=== PATIENT | female | born 1995 | race African-American/Black ===

== ENCOUNTER 2017-07-21 18:21 | Emergency (ER) | payer BC ==
[~2017-07-21] VITALS: Ht 167.6 cm; Wt 69.0 kg
[2017-07-21 18:38] VITALS: O2SAT 99; Ht 167.6 cm; Wt 69.0 kg
[2017-07-21] MEDS ORDERED: ONDANSETRON INJ 2 MG/ML 2 ML VIAL IV STA (18:44)
[2017-07-21] MEDS ORDERED: SODIUM CHLORIDE 0.9% 500ML 500 ML IV STA (18:45)
--- NOTE | 2017-07-21 19:02 | DIAGNOSTIC IMAGING REPORT ---
SINGLE VIEW CHEST CLINICAL HISTORY: Sepsis. Nausea and vomiting. FINDINGS: An AP, portable, upright chest radiograph is obtained. No prior studies are available for comparison at the time of dictation. The cardiomediastinal silhouette is unremarkable. The lungs and pleural spaces are clear. No pneumothorax is seen. The bony thorax is grossly intact. A left nipple piercing is noted. IMPRESSION: No active disease in the chest. Electronically signed by: Woo Gray M.D. 07/21/2017 7:01 PM Dictated Date/Time: 07/21/2017 7:00 PM
[2017-07-21] MEDS ORDERED: ACETAMINOPHEN 500 MG TAB PO STA (19:09)
[2017-07-21 19:28] LABS: BASO % 0.1 %; BASO ABS # 0.01 K/uL (0-0.2); COMPLETE YES; EOS % 0.1 %; IG% 0.3 %; LYMPH % 5.2 %; MEAN CELL VOLUME 90.1 fL (80-100); MEAN CORPUSCULAR HEMOGLOBIN 30.5 pg (25-34); MEAN CORPUSCULAR HGB CONC 33.8 g/dl (32-36); MEAN PLATELET VOLUME 10.4 fL (7.4-10.4); MONO % 9.3 %; PLATELET COUNT 335 K/uL (130-400); RED BLOOD COUNT 4.66 M/uL (4.2-5.4); WHITE BLOOD COUNT 11.56 K/uL (4.8-10.8)
[2017-07-21 19:37] LABS: CALCIUM 9.1 mg/dl (8.5-10.1); CREATININE 0.94 mg/dl (0.60-1.20); POTASSIUM 4.2 mmol/L (3.5-5.1)
[2017-07-21 19:40] LABS: ALB/GLOB RATIO 0.8 (0.9-2)
[2017-07-21 19:49] LABS: PROTHROMBIN TIME (PATIENT) 11.1 SECONDS (9.0-12.0)
[2017-07-21] MEDS ORDERED: KETOROLAC TROMETHAMINE 30 MG/ML VIAL IV STA (19:52)
--- NOTE | 2017-07-21 19:52 | EMERGENCY ROOM VISIT NOTE ---
History Report prepared by Uma: Viridiana Blackburn Under the Supervision of: Dr. Ashely Torres D.O. First contact with patient: 18:32 Chief Complaint: NAUSEA Stated Complaint: THROWING UP BILE, BACK PAIN, NAUSEA, HEADACHE Nursing Triage Summary: Vomiting bile and back pain since this AM. Went to [facility] ER last night to eat, also left tampon in for 24 hours. Abd cramping and diarrhea. History of Present Illness The patient is a 22 year old female who presents to the Emergency Room with complaints of persistent influenza like symptoms that began today. She rates her discomfort a 7/10 in severity. The patient states that this morning she went to work at 1000, noting she was sent home after 2 hours for having diarrhea and vomiting bile. The patient notes that she was unable to drink water without throwing up. She states that around 1300, she had a subjective fever. The patient denies a cough or sore throat. She notes that she has a lot of mucous draining from her nose and throat. The patient states that she had TGIF's the past 2 nights nights in a row, noting she ate a "questionable" chicken sandwich and a hamburger. She states that her last normal menstrual period began 6 days ago. She notes that has been experiencing cramps and back pain, noting it has not been abnormal. The patient states that last night she put in a tampon and left it in over night. The patient denies any abnormal vaginal discharge, urinary symptoms, or abdominal pain. She denies having any health problems or recently being near anyone sick. The patient notes that she is a student. She states that she had surgery on her foot during her freshman year of college. Source of History: patient Onset: Today Position: other (global) Symptom Intensity: 710 Quality: other (influenza like symptoms) Timing: other (persistent) Associated Symptoms: + fevers (subjective), + vomiting, + diarrhea, No sorethroat, No cough, No urinary symptoms Review of Systems See HPI for pertinent positives & negatives. A total of 10 systems reviewed and were otherwise negative. Past Medical & Surgical None Family History Cancer Diabetes mellitus FHx: seizures Hypertension Social History Smoking Status: Never Smoker Smokeless Tobacco Use: No Alcohol Use: occasionally Drug Use: none Housing Status: lives with roommate Occupation Status: employed Current/Historical Medications No Active Prescriptions or Reported Meds Allergies Coded Allergies: Penicillins (Verified Allergy, Unknown, Unknown, 07/21/17) As a child had a reaction Physical Exam Vital Signs Date Time Temp Pulse Resp B/P (MAP) Pulse Ox O2 Delivery O2 Flow Rate FiO2 07/21/17 22:15 36.9 96 18 126/80 98 07/21/17 21:11 110 18 118/76 98 Room Air 07/21/17 20:21 119 21 99 07/21/17 20:14 38.3 101 16 125/83 98 Room Air 07/21/17 19:51 123 20 98 07/21/17 19:21 116 15 100 07/21/17 19:21 115 07/21/17 18:38 99 Room Air 07/21/17 18:29 39.1 142 18 104/67 99 Room Air Physical Exam HEENT: Head - normocephalic and atraumatic Pupils are equal, round, and reactive to light. Extraocular eye muscles are intact, and sclera are anicteric. Nose - moist nasal mucosa without discharge. Mouth - moist buccal mucosa. Oropharynx is nonerythematous and there is no tonsillar exudate or edema noted. Neck: Supple; no JVD, nuchal rigidity, cervical lymphadenopathy. Heart: Tachycardia. There is a normal S1 and S2 with no murmurs, clicks, or gallops appreciated. Lungs: Clear to auscultation bilaterally with no wheezes, rales, or rhonchi. Abdomen: Soft, completely nontender, nondistended, with good bowel sounds. There are no palpable pulsatile masses or hepatosplenomegaly. There is no guarding, rigidity, or rebound noted. Extremities: No evidence of cyanosis, clubbing, or edema. There are easily palpable peripheral pulses. Skin: warm and dry with good turgor and no rashes. Medical Decision & Procedures ER Provider Diagnostic Interpretation: Radiology results as stated below per my review and the radiologist's interpretation: SINGLE VIEW CHEST CLINICAL HISTORY: Sepsis. Nausea and vomiting. FINDINGS: An AP, portable, upright chest radiograph is obtained. No prior studies are available for comparison at the time of dictation. The cardiomediastinal silhouette is unremarkable. The lungs and pleural spaces are clear. No pneumothorax is seen. The bony thorax is grossly intact. A left nipple piercing is noted. IMPRESSION: No active disease in the chest. Electronically signed by: Woo Gray M.D. 07/21/2017 7:01 PM Laboratory Results 07/21/17 19:00 Red Blood Count 4.66, Mean Corpuscular Volume 90.1, Mean Corpuscular Hemoglobin 30.5, Mean Corpuscular Hemoglobin Concent 33.8, Mean Platelet Volume 10.4, Neutrophils (%) (Auto) 85.0, Lymphocytes (%) (Auto) 5.2, Monocytes (%) (Auto) 9.3, Eosinophils (%) (Auto) 0.1, Basophils (%) (Auto) 0.1, Neutrophils # (Auto) 9.82, Lymphocytes # (Auto) 0.60, Monocytes # (Auto) 1.08, Eosinophils # (Auto) 0.01, Basophils # (Auto) 0.01 07/21/17 19:00 Test 07/21/17 19:00 07/21/17 19:10 07/21/17 20:08 White Blood Count 11.56 K/uL (4.8-10.8) Red Blood Count 4.66 M/uL (4.2-5.4) Hemoglobin 14.2 g/dL (12.0-16.0) Hematocrit 42.0 % (37-47) Mean Corpuscular Volume 90.1 fL (80-100) Mean Corpuscular Hemoglobin 30.5 pg (25-34) Mean Corpuscular Hemoglobin Concent 33.8 g/dl (32-36) Platelet Count 335 K/uL (130-400) Mean Platelet Volume 10.4 fL (7.4-10.4) Neutrophils (%) (Auto) 85.0 % Lymphocytes (%) (Auto) 5.2 % Monocytes (%) (Auto) 9.3 % Eosinophils (%) (Auto) 0.1 % Basophils (%) (Auto) 0.1 % Neutrophils # (Auto) 9.82 K/uL (1.4-6.5) Lymphocytes # (Auto) 0.60 K/uL (1.2-3.4) Monocytes # (Auto) 1.08 K/uL (0.11-0.59) Eosinophils # (Auto) 0.01 K/uL (0-0.5) Basophils # (Auto) 0.01 K/uL (0-0.2) RDW Standard Deviation 41.2 fL (36.4-46.3) RDW Coefficient of Variation 12.7 % (11.5-14.5) Immature Granulocyte % (Auto) 0.3 % Immature Granulocyte # (Auto) 0.04 K/uL (0.00-0.02) Prothrombin Time 11.1 SECONDS (9.0-12.0) Prothromb Time International Ratio 1.0 (0.9-1.1) Activated Partial Thromboplast Time 26.9 SECONDS (21.0-31.0) Partial Thromboplastin Ratio 1.0 Anion Gap 9.0 mmol/L (3-11) Est Creatinine Clear Calc Drug Dose 88.6 ml/min Estimated GFR () 100.5 Estimated GFR (Non- 86.7 BUN/Creatinine Ratio 18.0 (10-20) Calcium Level 9.1 mg/dl (8.5-10.1) Total Bilirubin 0.4 mg/dl (0.2-1) Aspartate Amino Transf (AST/SGOT) 16 U/L (15-37) Alanine Aminotransferase (ALT/SGPT) 20 U/L (12-78) Alkaline Phosphatase 82 U/L (45-117) Total Protein 8.6 gm/dl (6.4-8.2) Albumin 3.8 gm/dl (3.4-5.0) Globulin 4.8 gm/dl (2.5-4.0) Albumin/Globulin Ratio 0.8 (0.9-2) Bedside Lactic Acid Venous 1.11 mmol/L (0.90-1.70) Influenza Type A Antigen Neg for Influ A (NEG) Influenza Type B Antigen Neg for Influ B (NEG) Urine Color DK YELLOW Urine Appearance CLOUDY (CLEAR) Urine pH 5.0 (4.5-7.5) Urine Specific [place] 1.032 (1.000-1.030) Urine Protein NEG (NEG) Urine Glucose (UA) NEG (NEG) Urine Ketones TRACE (NEG) Urine Occult Blood 1+ (NEG) Urine Nitrite NEG (NEG) Urine Bilirubin NEG (NEG) Urine Urobilinogen NEG (NEG) Urine Leukocyte Esterase TRACE (NEG) Urine WBC (Auto) 1-5 /hpf (0-5) Urine RBC (Auto) 0-4 /hpf (0-4) Urine Hyaline Casts (Auto) 1-5 /lpf (0-5) Urine Epithelial Cells (Auto) >30 /lpf (0-5) Urine Bacteria (Auto) NEG (NEG) Urine Crystals AMORPHOUS SEDIMENT (NONE Urine Mucus PRESENT (NONE PRSENT) Laboratory results per my review. Medications Administered Medications (Trade) Dose Ordered Sig/Bela Route Start Time Stop Time Status Last Admin Dose Admin Ondansetron HCl (Zofran Inj) 4 mg NOW STAT IV 07/21/17 18:44 07/21/17 18:46 DC 07/21/17 19:10 4 MG Sodium Chloride 500 ml @ 999 mls/hr Q31M STAT IV 07/21/17 18:45 07/21/17 19:15 DC 07/21/17 19:11 999 MLS/HR Acetaminophen (Tylenol Tab) 1,000 mg NOW STAT PO 07/21/17 19:09 07/21/17 19:10 DC 07/21/17 19:16 1,000 MG Ketorolac Tromethamine (Toradol Inj) 30 mg NOW STAT IV 07/21/17 19:52 07/21/17 19:53 DC 07/21/17 20:24 30 MG Procedure 1844: Ordered Zofran Inj 4mg IV. 1844: Ordered Sodium Chloride 500ml @ 999 mls/hr IV. 1908: Ordered Tylenol tab 1000mg PO. 1951: Ordered Toradol Inj 30mg IV. ED Course 1835: Past medical records reviewed. The patient was evaluated in room B2. A complete history and physical exam was performed. A septic protocol was performed. 4: Ordered Zofran Inj 4mg IV. 1844: Ordered Sodium Chloride 500ml @ 999 mls/hr IV. Patient had chest x-ray as described above. Her nose was swab for influenza. 1908: Ordered Tylenol tab 1000mg PO. 1950: I reevaluated the patient and she was resting comfortably. The patient states her nausea is gone, but she is still having back pain. 1951: Ordered Toradol Inj 30mg IV. She was able to give urine specimen as noted above. 2102: I reevaluated the patient, who was resting comfortably. 2155: Upon reevaluation, the patient was resting comfortably. I discussed findings and results with her. The patient verbalized agreement of the treatment plan. The patient was discharged home. Medical Decision The patient is a 22 year old female who presents to the ED with influenza symptoms. Differential diagnosis includes Sepsis, Influenza, Pneumonia, Vaginal Infection, Food Born Illness, Bacteremia. The lab results show: negative influenza, normal lactic acid, normal LFT and renal function, white count of 11.5, 85% neutrophils, stable H&H. The patient had a sudden onset of fever, nausea, vomiting, diarrhea and back pain earlier today. Septic protocol was performed and was essentially unremarkable. I do not suspect the retained tampon as a source of the patient' s fever. She denies any vaginal discharge or foul smell. The patient felt significantly better after receiving the above meds. She had no further episodes of vomiting or diarrhea while here in the ER. I've asked the patient to follow-up with her PCP if the symptoms persist. Symptoms worsen, she should return here to the ER. Medication Reconcilliation Current Medication List: was personally reviewed by me Blood Pressure Screening Patient's blood pressure: Normal blood pressure Impression Primary Impression: Febrile illness Additional Impression: Vomiting Scribe Attestation The scribe's documentation has been prepared under my direction and personally reviewed by me in its entirety. I confirm that the note above accurately reflects all work, treatment, procedures, and medical decision making performed by me. Departure Information Dispostion Home / Self-Care Prescriptions No Active Prescriptions or Reported Meds Referrals No Doctor, Assigned (PCP) Forms HOME CARE DOCUMENTATION FORM, IMPORTANT VISIT INFORMATION Patient Instructions My [facility] Additional Instructions Rest. Take a bland diet and plenty of clear liquids Follow up with PCP if fever persists over next 48 hours. Use tylenol for fever Problem Qualifiers Additional Impression: Vomiting Vomiting type: bilious vomiting Nausea presence: with nausea Qualified Codes: R11.14 - Bilious vomiting
[2017-07-21 20:51] LABS: URINE APPEARANCE CLOUDY (CLEAR); URINE BILIRUBIN NEG (NEG); URINE COLOR DK YELLOW; URINE EPITHELIAL CELL AUTO >30 /lpf (0-5); URINE NITRITE NEG (NEG); URINE SPECIFIC GRAVITY 1.032 (1.000-1.030); UROBILINOGEN NEG (NEG); ZZUR CULT IF INDIC CLEAN CATCH NO
[2017-07-21 20:59] LABS: MANUAL MICROSCOPIC REQUIRED? NO; REVIEW REQ? YES
[2017-07-21 21:26] LABS: URINE MUCUS PRESENT (NONE PRSENT)
[2017-07-21 22:15] VITALS: BP 126/80; PULSE 96; TEMP 36.9; O2SAT 98
== END 2017-07-21 22:15 | disposition home or self-care (01) ==
LOC: C.EDB 18:23 → C.EDA 22:15
DX: R11.14 Bilious vomiting (principal); R50.9 Fever, unspecified; Z80.9 Family history of malignant neoplasm, unspecified; Z83.3 Family history of diabetes mellitus; Z82.0 Family history of epilepsy and other diseases of the nervous system; Z82.49 Family history of ischemic heart disease and other diseases of the circulatory system